=== PATIENT | female | born 1990 | race Caucasian/White ===

== ENCOUNTER 2016-08-15 12:35 | Inpatient (IN) | payer OTHER ==
[2016-08-15] VITALS (49 sets, daily range): BP systolic 93–120; BP diastolic 45–95; PULSE 80–115; RESP 16–18; TEMP 98.9–100.1
[~2016-08-15 12:35] MED LIST: LORTS PO; METO10TA PO; SENN1TAB11 PO
[2016-08-15] MEDS ORDERED: LACTATED RINGER'S 1000 ML INJ 1,000 ML IV PRN (13:04)
--- NOTE | 2016-08-15 13:04 | HHI.HP ---
HPI Chief Complaint Contractions and bleeding Date Seen: Aug 15, 2016 Travel History International Travel<30 Days: No Contact w/Intl Traveler<30Days: No Known Affected Area: No History of Present Illness HPI Patient is 26-year-old white female at 39 weeks presents combining of contractions and then subsequent bleeding similar to a period, denies rupture the membranes. heart rate tracing is reactive and contractions are noted every 2 minutes that are painful, records are available she's Dr. Islas for care he's out of town Dyer is covering Para: 0 : 1 History Social History Alcohol Use: No Tobacco Use: No Substance Abuse: No Allergies-Medications (Allergen,Severity, Reaction): Coded Allergies: Bactrim (Verified Allergy, Severe, vomiting, 08/15/16) Reglan (Verified Allergy, Severe, aggitation, hallucinations, 08/15/16) Erythromycin (Verified Allergy, Unknown, 06/16/11) Home Meds Reported Medications [Lortab] No Conflict Check5-325 Mg PO Q4HPRN #20 06/20/11 Metoclopramide 10 mg (Reglan 10 mg)10 Mg Tab10 Mg PO TIDAC 06/20/11 Docusate Sod/Senna (Senna Plus 8.6-50 mg)1 Tab Tab2 Tab PO HS 06/20/11 Review of Systems General / Constitutional: No: Fever, Weight Gain, Chills, Other Eyes: No: Diploplia, Blurred Vision, Visual changes, Pain, Photophobia HENT: No: Headaches, Vertigo, Lightheadedness Cardiovascular: No: Irregular Rhythm, Chest Pain or Discomfort, Palpitations, Tachycardia, Syncope, Varicosities, Edema, Cyanosis Respiratory: No: Cough, Short of Breath, Other Gastrointestinal: Abdominal Pain, No: Nausea, Vomiting, Diarrhea Genitourinary: Vaginal Bleeding, No: Decreased Urinary Output, Oliguria Musculoskeletal: No: Limited ROM, Weakness, Cramping, Edema, Pain Skin: No Rash, No Itching, No Dryness, No Lumps, No Change in Pigmentation, No Change in Nails, No Alopecia, No Lesions Neurologic: No: Weakness, Dizziness, Syncope, Focal Abnormalities, Coordination Problem, Headache, Slurred Speech, Seizures Psychiatric: No: Depression, Suicidal Ideations, Homicidal Ideation Endocrine: No: Heat Intolerance, Cold Intolerance, Polydipsia, Polyuria, Other Physical Exam Narrative GENERAL: Well-nourished, well-developed patient. SKIN: Warm and dry. HEAD: Normocephalic and atraumatic. EYES: No scleral icterus. No injection or drainage. ENT: No nasal drainage noted. Mucous membranes pink. Airway patent. NECK: Supple, trachea midline. No JVD. CARDIOVASCULAR: Regular rate and rhythm without murmurs, gallops, or rubs. RESPIRATORY: Breath sounds equal bilaterally. No accessory muscle use. BREASTS: Bilateral exam showed no masses , no retractions, no nipple discharge. ABDOMEN/GI: Abdomen soft, non-tender, bowel sounds present, no rebound, no guarding Gravid to [39-] weeks size Fundal Height: [38-] GENITOURINARY: External Genitalia: intact and normal in appearance BUS glands: [-] Cervix: [-] Dilatation: [-3-4] Effacement: [100-] Station: [-2] Presentation: [-vtx] Membranes: [intact ] Uterine Contractions: [q 2 min-] FHT's: Category: [1-] Baseline: [-144] Reactive: [yes-] Variability: [mod-] Decels: [0-] EXTREMITIES: No cyanosis or edema. BACK: Nontender without obvious deformity. No CVA tenderness. NEUROLOGICAL: Awake and alert. Motor and sensory grossly within normal limits. Five out of 5 muscle strength in all muscle groups. Normal speech. Data Data Labs GBS positive Assessment/Plan Assessment and Plan Patient is 26-year-old white female at 39 weeks presents in labor. heart rate tracing is reactive she is sakshi every 2 minutes with pain. She has fairly heavy bloody show. Cervix is 3-4 cm / 100 percent/ -2 station vertex with intact membranes, records are available. Plan to notify Dr. Dyer of patient's arrival and condition Michael Betancur II, MD Aug 15, 2016 13:04
[2016-08-15] MEDS ORDERED: LIDOCAINE HCL 1% 50 ML VIAL I-DERMAL PRN (13:15)
[2016-08-15] MEDS ORDERED: OXYTOCIN 30 UNITS-500ML PREMIX 500 ML IV ONE ×2 (13:15→23:45)
[2016-08-15] MEDS ORDERED: LIDOCAINE HCL 1% 50 ML VIAL INFIL PRN (13:15)
[2016-08-15] MEDS ORDERED: SODIUM CHLORID 0.9% 500 ML INJ 500 ML IV PRN (13:15)
[2016-08-15] MEDS ORDERED: CITRIC ACID-SODIUM CITRATE LIQ 30 ML UDC PO SCH (13:15)
[2016-08-15] MEDS ORDERED: MINERAL OIL 10 ML VIAL TOPICAL PRN (13:15)
[2016-08-15] MEDS ORDERED: SODIUM CHLOR 0.9% 1000 ML INJ 1,000 ML IV PRN (13:24)
[2016-08-15] MEDS ORDERED: PENICILLIN G POTASSIUM INJ 5,000,000 UNITS in SODIUM CHLORIDE 0.9% INJ 100 ML IV ONE (13:30)
[2016-08-15 13:34] LABS: AUTOMATED NEUTROPHIL # 20.2 TH/MM3 (1.8-7.7); BASOPHIL # 0.1 TH/MM3 (0-0.2); BASOPHIL % 0.6 % (0.0-2.0); EOSINOPHIL % 0.1 % (0.0-4.0); HEMATOCRIT 38.6 % (35.0-46.0); HEMO FLAGS DIFF FINAL; LYMPHOCYTE # 2.9 TH/MM3 (1.0-4.8); MEAN CELL VOLUME 92.5 FL (80.0-100.0); MEAN CORPUSCULAR HEMOGLOBIN 30.3 PG (27.0-34.0); MEAN CORPUSCULAR HGB CONC 32.8 % (32.0-36.0); MONO % 5.2 % (0.0-8.0); NEUT % 82.1 % (16.0-70.0); PLATELET COUNT 164 TH/MM3 (150-450); RED BLOOD COUNT 4.17 MIL/MM3 (4.00-5.30); RED CELL DISTRIBUTION WIDTH 13.2 % (11.6-17.2); WHITE BLOOD COUNT 24.6 TH/MM3 (4.0-11.0)
[2016-08-15] MEDS: LACTATED RINGER'S 1000 ML INJ 1,000 ML IV SCH ×3 (13:41→22:01)
[2016-08-15 13:43] LABS: BACTERIA, URINE RARE /hpf; BLOOD, URINE MOD (NEG); COMMENT (UR) CULT NOT INDICATED; CULTURE IF INDICATED CULT NOT INDICATED; GLUCOSE,URINE NEG (NEG); KETONE, URINE NEG (NEG); MUCUS URINE FEW /lpf (OCC); NITRITE,URINE NEG (NEG); SQUAMOUS EPITHELIAL CELL URINE 2 /hpf (0-5); URINE COLOR LIGHT-YELLOW (YELLW/STRAW)
[2016-08-15] MEDS ORDERED: DIPHTH/TETANUS/ACEL PERTUSSIS (BOOSTER) 0.5 ML VIAL/PFS IM ONE (16:00)
[2016-08-15] MEDS ORDERED: MEASLES, MUMPS, RUBELLA VACCINE 0.5 ML VIAL SQ ONE (16:00)
[2016-08-15] MEDS ORDERED: BUPIVACAINE HCL PF 0.25% 10 ML VIAL ONE (16:47)
[2016-08-15] MEDS ORDERED: fentaNYL 2MCG-BUPIV 0.125% INJ 100 ML ONE (16:48)
[2016-08-15] MEDS ORDERED: ePHEDrine/NS 25 MG/5 ML SYR ONE (16:48)
[2016-08-15] MEDS: PENICILLIN G POTASSIUM INJ 2,500,000 UNITS in SODIUM CHLORIDE 0.9% INJ 100 ML IV SCH ×2 (17:49→22:01)
[2016-08-15] MEDS ORDERED: ePHEDrine/NS 25 MG/5 ML SYR IV PRN (18:30)
[2016-08-15] MEDS ORDERED: fentaNYL 2MCG-BUPIV 0.125% 100 ML EPIDURAL SCH (18:30)
[2016-08-15] MEDS ORDERED: DO NOT ADMINISTER ANTICOAGULANTS PRN (18:30)
[2016-08-15] MEDS ORDERED: NO SYSTEM NARCOTICS PRN (18:30)
--- NOTE | 2016-08-15 23:32 | PD.OB.DELI ---
Delivery Date: Aug 15, 2016 Anesthesia: Epidural, Lidocaine local to perineum Episiotomy: Midline Vaginal Delivery: Normal Presentation: Occiput anterior Nuchal Cord: None Delayed cord clamping (45 sec): No Infant: Male, Single One Minute : 8 Five Minute : 9 Weight: 7-13 Placenta: Spontaneous delivery, Intact, 3 vessel cord Laceration: Episiotomy, 3 deg (repaired in layers with 2-0 chromic on anal sphincter and vaginal mucosa. 3-0 chromic used on the perineum. rectal exam confirms no stitches in the rectum) Helena Dyer MD Aug 15, 2016 23:32
[2016-08-15] MEDS ORDERED: oxyCODONE/ACETAMINOPHEN 5 MG/325 MG TAB PO PRN (23:45)
[2016-08-15] MEDS ORDERED: OXYTOCIN 10 UNIT/ML AMP XX PRN (23:45)
[2016-08-15] MEDS ORDERED: ACETAMINOPHEN 325 MG TAB PO PRN (23:45)
[2016-08-15] MEDS ORDERED: ALUMINUM/MAGNESIUM/SIMETH 30 ML CUP PO PRN (23:45)
[2016-08-15] MEDS ORDERED: LIDOCAINE HCL 1% 20 ML VIAL INFIL ONE (23:45)
[2016-08-15] MEDS ORDERED: SODIUM CHLORIDE 0.9% FLUSH 10 ML FLUSH IV FLUSH PRN (23:45)
[2016-08-15] MEDS ORDERED: ZOLPIDEM TARTRATE 5 MG TAB PO PRN (23:45)
[2016-08-15] MEDS ORDERED: ONDANSETRON ODT 4 MG TAB PO PRN (23:45)
[2016-08-16] VITALS (9 sets, daily range): BP systolic 93–113; BP diastolic 52–69; PULSE 76–102; RESP 16–18; TEMP 98.2–99.4
[2016-08-16] MEDS: WITCH HAZEL 50%/GLYCERIN 12.5% 40 PAD JAR TOPICAL PRN ×2 (01:18→23:37)
[2016-08-16] MEDS: IBUPROFEN 600 MG TAB PO PRN ×3 (01:18→19:16)
[2016-08-16] MEDS: DOCUSATE SODIUM 50 MG/SENNA 8.6 MG TAB PO PRN ×2 (01:18→13:11)
[2016-08-16] MEDS: BENZOCAINE 20% TOPICAL SPRAY 60 ML CAN TOPICAL PRN ×2 (01:18→23:36)
[2016-08-16] MEDS: oxyCODONE/ACETAMINOPHEN 5 MG/325 MG TAB PO PRN ×3 (05:42→19:15)
[2016-08-16 07:18] LABS: AUTOMATED NEUTROPHIL # 22.7 TH/MM3 (1.8-7.7); BASOPHIL % 0.2 % (0.0-2.0); HEMATOCRIT 34.7 % (35.0-46.0); HEMO FLAGS DIFF FINAL; LYMPH % 12.7 % (9.0-44.0); LYMPHOCYTE # 3.5 TH/MM3 (1.0-4.8); MEAN CELL VOLUME 92.8 FL (80.0-100.0); MEAN CORPUSCULAR HEMOGLOBIN 30.4 PG (27.0-34.0); MEAN CORPUSCULAR HGB CONC 32.8 % (32.0-36.0); NEUT % 82.1 % (16.0-70.0); PLATELET COUNT 147 TH/MM3 (150-450); RED BLOOD COUNT 3.74 MIL/MM3 (4.00-5.30); RED CELL DISTRIBUTION WIDTH 13.2 % (11.6-17.2); WHITE BLOOD COUNT 27.6 TH/MM3 (4.0-11.0)
[2016-08-16] MEDS ORDERED: SODIUM CHLORIDE 0.9% FLUSH 10 ML FLUSH IV FLUSH SCH (09:00)
--- NOTE | 2016-08-16 12:01 | HHI.OB ---
Subjective Post Day: 1 Remarks pain controlled, mod lochia, claudio po, +void/flatus, denies fever/chills. Objective Vitals/I&O Vital Signs Date Time Temp Pulse Resp B/P Pulse Ox O2 Delivery O2 Flow Rate FiO2 08/16/16 07:30 98.2 76 16 93/52 08/16/16 01:00 99.1 18 08/16/16 01:00 102 111/54 08/16/16 00:31 98 109/62 08/16/16 00:31 18 08/16/16 00:17 101 113/68 08/16/16 00:16 18 08/16/16 00:01 98 111/69 08/16/16 00:00 99.4 18 08/15/16 23:46 115 115/74 08/15/16 23:45 18 08/15/16 23:29 18 08/15/16 23:28 119/63 08/15/16 23:28 114 08/15/16 21:46 98 113/68 08/15/16 21:45 99.9 16 08/15/16 21:38 16 08/15/16 21:38 98 104/62 08/15/16 21:24 100 104/67 08/15/16 21:24 16 08/15/16 20:59 18 08/15/16 20:58 90 102/63 08/15/16 20:58 99.7 08/15/16 20:36 103 100/48 08/15/16 20:36 18 08/15/16 20:16 99.9 18 08/15/16 20:16 104 117/69 08/15/16 19:53 18 08/15/16 19:52 103 112/69 08/15/16 19:40 92 18 08/15/16 19:38 111/62 08/15/16 19:13 100.1 101 18 109/66 08/15/16 18:40 107 08/15/16 18:35 110 08/15/16 18:30 109 08/15/16 18:30 106 112/64 08/15/16 18:25 111 08/15/16 18:20 112 08/15/16 18:15 99.7 08/15/16 18:15 96 08/15/16 18:10 96 08/15/16 18:05 98 08/15/16 18:00 98 100/56 08/15/16 18:00 94 08/15/16 17:55 92 08/15/16 17:52 99 101/45 08/15/16 17:50 91 08/15/16 17:48 93 98/54 08/15/16 17:45 93 08/15/16 17:45 101 104/52 08/15/16 17:42 91 103/54 08/15/16 17:40 101 108/55 08/15/16 17:40 95 08/15/16 17:35 93 08/15/16 17:35 92 101/62 08/15/16 17:30 106 08/15/16 17:30 94 98/80 08/15/16 17:25 91 08/15/16 17:25 92 105/58 08/15/16 17:21 93 103/60 08/15/16 17:20 85 08/15/16 17:20 84 103/54 08/15/16 17:15 80 105/57 08/15/16 17:15 80 08/15/16 17:13 18 08/15/16 17:12 84 101/59 08/15/16 17:10 83 93/53 08/15/16 17:10 81 08/15/16 17:05 83 116/95 08/15/16 17:00 88 08/15/16 17:00 93 120/66 08/15/16 16:56 92 109/67 08/15/16 16:15 98.9 18 08/15/16 16:01 86 117/83 08/15/16 15:06 84 107/59 08/15/16 14:00 87 96/53 08/15/16 14:00 96/53 08/15/16 14:00 87 Objective Remarks GENERAL: Well-nourished, well-developed patient. CARDIOVASCULAR: Regular rate and rhythm without murmurs, gallops, or rubs. RESPIRATORY: Breath sounds equal bilaterally. No accessory muscle use. ABDOMEN/GI: Abdomen soft, non-tender. Fundus: Firm, non-tender at umbilicus. GENITOURINARY: Light to moderate bleeding. EXTREMITIES: No cyanosis or edema, non-tender, without signs of DVT. Medications and IVs Current Medications Medications (Trade) Dose Ordered Sig/Angela Route Start Time Stop Time Status Last Admin (NS Flush) 2 ml BID IV FLUSH 08/16/16 09:00 (NS Flush) 2 ml UNSCH PRN IV FLUSH 08/15/16 23:45 (Tylenol) 650 mg Q4H PRN PO 08/15/16 23:45 (Motrin) 600 mg Q6H PRN PO 08/15/16 23:45 08/16/16 01:18 (Percocet 5-325 Mg) 1 tab Q4H PRN PO 08/15/16 23:45 08/16/16 05:42 (Percocet 5-325 Mg) 2 tab Q4H PRN PO 08/15/16 23:45 (Americaine 20% Top Spr) 1 spray Q4H PRN TOPICAL 08/15/16 23:45 08/16/16 01:18 (Tucks Pads) 1 applic QID PRN TOPICAL 08/15/16 23:45 08/16/16 01:18 (Clarice-Colace) 2 tab Q12H PRN PO 08/15/16 23:45 08/16/16 01:18 (Ambien) 5 mg HS PRN PO 08/15/16 23:45 (Mag-Al Plus Susp Liq) 15 ml Q8H PRN PO 08/15/16 23:45 (Zofran Odt) 4 mg Q6H PRN PO 08/15/16 23:45 Assessment/Plan Problem List: (1) Spontaneous vaginal delivery Assessment and Plan routine pp care no signs of infection repeat cbc in Helena Jimenez MD Aug 16, 2016 12:00
[2016-08-16] MEDS ORDERED: IBUP-232 PO (12:03)
[2016-08-16] MEDS ORDERED: OXYC1TAB63 PO (12:03)
--- NOTE | 2016-08-16 12:05 | HHI.DCPOC ---
Discharge Care Plan Diagnosis: (1) Spontaneous vaginal delivery Your Health Problems Are: Vaginal delivery Report Symptoms to Your Doctor -Temperature above 100.5 degrees -Redness, of incision or excessive or foul smelling drainage -Unusual pain or calf pain -Increased vaginal bleeding -Painful or difficulty urinating -Feelings of extreme sadness or anxiety after 2 weeks Goals to Promote Your Health * To prevent worsening of your condition and complications * To maintain your health at the optimal level Directions to Meet Your Goals Take your medications as prescribed Follow your dietary instruction Follow activity as directed Ensure plenty of rest for recovery Drink fluids for hydration Keep your appointments as scheduled Take your immunizations and boosters as scheduled If your symptoms worsen call your PCP, if no PCP go to Urgent Care Center or Emergency Room Smoking is Dangerous to Your Health. Avoid second hand smoke Call the 24-hour crisis hotline for domestic abuse at Helena Dyer MD Aug 16, 2016 12:05
[2016-08-17] MEDS: IBUPROFEN 600 MG TAB PO PRN ×2 (05:20→11:07)
[2016-08-17] MEDS: oxyCODONE/ACETAMINOPHEN 5 MG/325 MG TAB PO PRN (05:20)
[2016-08-17 06:46] LABS: AUTOMATED NEUTROPHIL # 10.2 TH/MM3 (1.8-7.7); BASOPHIL # 0.1 TH/MM3 (0-0.2); BASOPHIL % 0.3 % (0.0-2.0); EOSINOPHIL # 0.2 TH/MM3 (0-0.4); EOSINOPHIL % 1.2 % (0.0-4.0); HEMO FLAGS DIFF FINAL; LYMPH % 30.9 % (9.0-44.0); MEAN CELL VOLUME 91.8 FL (80.0-100.0); MEAN CORPUSCULAR HEMOGLOBIN 31.3 PG (27.0-34.0); MEAN CORPUSCULAR HGB CONC 34.1 % (32.0-36.0); MONO % 5.2 % (0.0-8.0); NEUT % 62.4 % (16.0-70.0); PLATELET COUNT 156 TH/MM3 (150-450); RED CELL DISTRIBUTION WIDTH 13.3 % (11.6-17.2); WHITE BLOOD COUNT 16.3 TH/MM3 (4.0-11.0)
[2016-08-17 08:50] VITALS: BP 102/59; PULSE 75; RESP 18; TEMP 98.6
[2016-08-17] MEDS: DOCUSATE SODIUM 50 MG/SENNA 8.6 MG TAB PO PRN (11:08)
--- NOTE | 2016-08-20 09:34 | MD ---
cc: REZA DIOP ADMISSION DATE: 08/15/2016 DISCHARGE DATE: 08/17/2016 ADMISSION DIAGNOSIS Term . DISCHARGE DIAGNOSIS Term , delivered. HISTORY OF PRESENT ILLNESS 26-year-old white female, a patient of Dr. Dyer, was admitted on 08/15/2016, found to have a spontaneous vaginal delivery, a viable vigorous male with third degree tear and repair. Her pre and post delivery course was normal. She had white count elevation of 27,000 at admission, asymptomatic, and has dropped to 16 at the time of discharge. She was advised NPV, light activity. Return to see Dr. Dyer in 2 weeks. She will take vitamins at home, Motrin and Tylenol as needed. Dr. Dyer left a prescription for Oxycodone, Tylenol 5/325 two p.o. q.4 hours p.r.n. pain, #30. She is to call if any abnormal symptoms. MD BRENDON Butts/CHIO /10:54 AM /9:19 AM
== END 2016-08-17 18:15 | disposition home or self-care (01) | DRG 775 ==
LOC: HOBED 12:35 → H2EA 13:15 → H1EA 08-16 01:02
PROVIDERS: ADMIT Obstetrics & Gynecology; ATTEND Obstetrics & Gynecology
PROC: 10E0XZZ Delivery of Products of Conception, External Approach (ICD-10-PCS; principal; 2016-08-15)
PROC: 0DQR0ZZ Repair Anal Sphincter, Open Approach (ICD-10-PCS; 2016-08-15)
PROC: 0W8NXZZ Division of Female Perineum, External Approach (ICD-10-PCS; 2016-08-15)
PROC: 3E0S3CZ (ICD-10-PCS; 2016-08-15)
PROC: 00HU33Z Insertion of Infusion Device into Spinal Canal, Percutaneous Approach (ICD-10-PCS; 2016-08-15)
DX: O70.20 Third degree perineal laceration during delivery, unspecified (principal); Z37.0 Single live birth; Z3A.39 39 weeks gestation of pregnancy
CPT/HCPCS: 81001; 85025; 86900; 86901; 90707; 90715; 99285; J2540; J2590; J7120